=== PATIENT | male | born 1990 | race Hispanic/Latino ===

== ENCOUNTER 2022-03-31 02:48 | Emergency (ER) | payer OTHER, SELFPAY ==
[2022-03-31] MEDS ORDERED: Ondansetron PF 4 MG/2 ML Vial ONE (04:05)
[2022-03-31] MEDS ORDERED: Pantoprazole 40 MG VIAL ONE (04:06)
[2022-03-31 04:19] LABS: Bilirubin Neg (Negative); Blood, Urine Negative (Negative); Clarity Clear (Clear); Glucose, Urine (Dipstick) Normal (Negative); Ketone, Urine Negative (Negative); Leukocyte Negative (Negative); Nitrite Negative (Negative); Protein, Urine (Dipstick) Negative (Neg-Trace); Urobilinogen Normal mg/dL (Less than 2)
[2022-03-31 04:53] LABS: Hemoglobin 16.1 g/dL (13.5-17.5); Mean Corpuscular HGB CONC 35.3 g/dL (32.0-36.0); Mean Corpuscular Hemoglobin 30.3 pg (27.0-33.0); Mean Corpuscular Volume 85.7 fl (81.2-95.1); Platelet Count 244 10x3/uL (150-450); RBC Distribution Width 12.2 % (11.5-14.5); Red Blood Cell (RBC) Count 5.32 10x6/uL (4.32-5.72); White Blood Cell (WBC) Count 11.7 10x3/uL (3.5-10.5)
[2022-03-31 05:08] LABS: ALT (SGPT) 37 U/L (8-55); AST (SGOT) 21 U/L (5-34); Albumin 5.2 g/dL (3.5-5.0); Alkaline Phosphatase 71 U/L (40-110); Anion Gap 17 mmol/L (10-20); BUN (Urea Nitrogen) 6 mg/dL (8.9-20.6); Bilirubin, Total 0.5 mg/dL (0.2-1.2); Calc. Creatinine Clearance 0 mL/min (70-130); Calcium 9.5 mg/dL (7.8-10.44); Carbon Dioxide 21 mmol/L (22-29); Chloride 103 mmol/L (98-107); Estimated GFR 122; Globulin 3.1 g/dL (2.4-3.5); Glucose 118 mg/dL (70-105); Lipase 8 U/L (8-78); Potassium 3.9 mmol/L (3.5-5.1); Protein, Total 8.3 g/dL (6.0-8.3); Sodium 137 mmol/L (136-145)
[2022-03-31] MEDS ORDERED: Mag-Al Plus 1200 MG/1200 MG/120 MG/30 ML UDCUP ONE ×2 (05:48)
[2022-03-31 05:57] LABS: MDiff Complete? YES; Platelet Morphology Comment Appears Adequate
[2022-03-31 06:03] LABS: Lymphocytes 12 % (21-51); Monocytes 10 % (0-10); Neutrophil 75 % (42-75); Reactive Lymphocytes 3 % (0-10)
[2022-03-31] MEDS ORDERED: Iopamidol 370 76% 100 ML VIAL ONE (11:18)
== END 2022-03-31 09:55 | disposition home or self-care (01) ==
LOC: CSHERS 02:48
DX: K29.70 Gastritis, unspecified, without bleeding (principal); R07.89 Other chest pain; F15.10 Other stimulant abuse, uncomplicated; E78.5 Hyperlipidemia, unspecified
CPT/HCPCS: 71045; 74177; 80053; 81003; 83690; 84443; 84484; 85025; 85379; 93005; 96361; 96374; 96375; C9113; J2405; Q9967